=== PATIENT | female | born 1990 | race Caucasian/White ===

== ENCOUNTER 2021-05-12 04:30 | Emergency (ER) | payer SELFPAY ==
[2021-05-12 06:34] LABS: BASOPHIL 0.3 % (0-2); EOSINOPHIL 0.7 % (0-5); HCT 40.9 % (37.0-47.0); HGB 14.2 g/dl (12.5-16.0); MCH 30.7 pg (25.0-31.0); MCHC 34.7 g/dL (32.0-36.0); MCV 88.3 fL (78.0-100.0); MONOCYTE 7.3 % (0-12); NEUTROPHIL 67.4 % (41-80); NRBC 0; PLT 257 K/uL (150-400); RBC 4.63 M/uL (4.20-5.40); RDW 12.2 % (11.5-14.0); WBC 10.7 K/uL (4.0-10.5)
[2021-05-12 06:59] LABS: BUN/CREAT RATIO (CALC) 8.2 RATIO; CREATININE 0.61 mg/dL (0.51-0.95)
[2021-05-12] MEDS ORDERED: KEPPRA250 MG PO (07:52)
== END 2021-05-12 09:15 | disposition home or self-care (01) ==
LOC: FER 04:30
PROVIDERS: Internal Medicine
DX: R51.9 Headache, unspecified (principal); R56.9 Unspecified convulsions; Z87.891 Personal history of nicotine dependence; Z88.2 Allergy status to sulfonamides; Z28.311 Partially vaccinated for COVID-19
CPT/HCPCS: 36415; 70450; 80048; 85025; 96372; J1885; J3030

== ENCOUNTER 2021-07-22 21:36 | Emergency (ER) | payer SELFPAY ==
[~2021-07-22 21:36] MED LIST: KEPPRA250 MG PO
[2021-07-22 22:03] LABS: BASOPHIL 0.2 % (0-2); HCT 42.7 % (37.0-47.0); HGB 15.1 g/dl (12.5-16.0); MCH 31.3 pg (25.0-31.0); MCHC 35.4 g/dL (32.0-36.0); MCV 88.6 fL (78.0-100.0); MONOCYTE 7.8 % (0-12); MPV 10.5 fL (6.0-9.5); NRBC 0; PLT 248 K/uL (150-400); RBC 4.82 M/uL (4.20-5.40); RDW 11.9 % (11.5-14.0); WBC 10.8 K/uL (4.0-10.5)
[2021-07-22 22:05] LABS: NEUTROPHIL 51.7 % (41-80)
[2021-07-22 22:25] LABS: ALBUMIN 3.8 g/dL (3.4-5.0); ALKALINE PHOSHATASE 146 U/L (46-116); ALT 45 U/L (14-59); AST 25 U/L (15-37); BILIRUBIN - TOTAL 0.2 mg/dL (0.2-1.0); BUN 6 mg/dL (7-18); BUN/CREAT RATIO (CALC) 8.3 RATIO; CHLORIDE 104 mmol/L (98-107); CO2 (BICARBONATE) 19 mmol/L (21-32); CREATININE 0.72 mg/dL (0.51-0.95); GLOBULIN (CALCULATION) 3.5 g/dL; GLUCOSE 96 mg/dL (74-106); POTASSIUM 3.6 mmol/L (3.5-5.1); TOTAL PROTEIN 7.3 g/dL (6.4-8.2)
[2021-07-22 23:49] LABS: BILIRUBIN NEGATIVE (NEGATIVE); BLOOD NEGATIVE Ery/uL (NEGATIVE); CLARITY CLEAR (CLEAR); COLOR YELLOW (YELLOW); GLUCOSE (U) NORMAL (NORMAL); LEUKOCYTES NEGATIVE Leu/uL (NEGATIVE); NITRITE POSITIVE (NEGATIVE); PROTEIN NEGATIVE (NEGATIVE); SPECIFIC GRAVITY <=1.005 (1.001-1.030); UROBILINOGEN 0.2 mg/dL (0.2-1.0)
[2021-07-22 23:57] LABS: AMPHETAMINES NEGATIVE (NEGATIVE); BARBITURATES NEGATIVE (NEGATIVE); ECSTASY (MDMA) NEGATIVE (NEGATIVE); MARIJUANA (THC) NEGATIVE (NEGATIVE); METHADONE NEGATIVE (NEGATIVE); OPIATES NEGATIVE (NEGATIVE); OXYCODONE NEGATIVE (NEGATIVE)
[2021-07-23] LABS: BACTERIA 2+
[2021-07-23] MEDS ORDERED: LEVETIRACETAM500 MG PO (00:30)
[2021-07-23] MEDS ORDERED: BACTRIM DS TAB1 EACH PO (00:30)
[2021-07-23] MEDS ORDERED: CEPHALEXIN500 MG PO (00:45)
== END 2021-07-23 00:50 | disposition home or self-care (01) ==
LOC: FER 21:36
PROVIDERS: Internal Medicine
DX: G40.909 Epilepsy, unspecified, not intractable, without status epilepticus (principal); N39.0 Urinary tract infection, site not specified; F17.210 Nicotine dependence, cigarettes, uncomplicated; Z88.1 Allergy status to other antibiotic agents
CPT/HCPCS: 36415; 80053; 80305; 81001; 83605; 84145; 85025; 87088; G0480; J1953